=== PATIENT | female | born 1995 | race Caucasian/White ===

== ENCOUNTER 2016-06-16 13:58 | Emergency (ER) | payer BC ==
[2016-06-16 15:09] VITALS: BP 118/78
--- NOTE | 2016-06-16 15:49 | Emergency Department Report ---
HPI - General Chief Complaint: Fall Time Seen by Provider: 06/16/16 15:45 - HPI HPI: She is a 21-year-old female presents to ED complaining of right hand pain 3 days. Patient states Thursday evening she slipped down about the steps and fell and used her right hand to catch her fall. Patient states shortness after the incident she began feeling some sharp pain on her anterior right hand. Patient states pain is sharp in nature. Patient rates pain about 8 out of 10 intensity. Patient states pain is localized to that region. Patient states using hand makes pain worse. Signed patient denies fevers/chills/nausea/ vomiting/loss of sensation on hand/dislocation or bleeding. ED Past Medical Hx - Past Medical History Previous Medical History?: No - Surgical History Past Surgical History?: No - Social History Smoking Status: Current Some Day Smoker Substance Use Type: Alcohol, Marijuana - Medications Home Medications: Home Medications Medication Instructions Recorded Confirmed Last Taken Type Ibuprofen [Motrin] 800 mg PO Q8HR PRN #30 tablet 06/16/16 Unknown Rx ED Review of Systems ROS: Stated complaint: RT HAND INJURY Other details as noted in HPI Constitutional: denies: chills, fever Eyes: denies: eye pain, eye discharge, vision change ENT: denies: ear pain, throat pain Respiratory: denies: cough, shortness of breath, wheezing Cardiovascular: denies: chest pain, palpitations Endocrine: no symptoms reported Gastrointestinal: denies: abdominal pain, nausea, diarrhea Genitourinary: denies: urgency, dysuria, frequency, hematuria, discharge Musculoskeletal: denies: back pain, joint swelling, arthralgia Skin: denies: rash, lesions, pruritus Neurological: denies: headache, weakness, numbness, paresthesias, confusion Psychiatric: denies: anxiety, depression Hematological/Lymphatic: denies: easy bleeding, easy bruising Physical Exam - Physical Exam Vital Signs: Vital Signs 06/16/16 15:05 Temperature 98.2 F Pulse Rate 64 Respiratory 18 Rate Blood Pressure 118/78 O2 Sat by Pulse 100 Oximetry Physical Exam: GENERAL: Alert and oriented x3, no apparent distress, Normal Gait, atraumatic. HEAD: Head is normocephalic and a-traumatic. EYES: Extra ocular muscles are intact. Pupils are equal, round, and reactive to light and accommodation. NECK: Supple. Non edematous, No carotid bruits. No lymphadenopathy or thyromegaly. No C-spine tenderness LUNGS: Symetrical with respiration, No wheezing, no rales or crackles, CTAB. HEART: S1, S2 present, regular rate and rhythm without murmur, no rubs, no gallops. ABDOMEN: No organomegaly was noted,Positive bowel sounds, soft, and non- distended. . Nontender to palpation on all Quadrants, NO CVA tenderness. EXTREMITIES/MUSCULOSKELETAL: No cyanosis, clubbing, rash, lesions or edema. Full ROM bilaterally. UE Pulses 2+ bilaterally. UE 5+ strength bilaterally. Full range of motion of hand. Capillary refill 2 seconds bilaterally. Mild tenderness to palpation of 5th metacarpal bone region. NEUROLOGIC: No focal Deficit, Cranial nerves II through XII are grossly intact. No loss of sensation, PSYCHIATRIC: Mood is congruent with affect, denies suicidal or homicidal ideations. SKIN: Warm and dry, No lesions, No ulceration or induration present. ED Course Vital Signs 06/16/16 15:05 Temperature 98.2 F Pulse Rate 64 Respiratory 18 Rate Blood Pressure 118/78 O2 Sat by Pulse 100 Oximetry ED Medical Decision Making - Radiology Data Radiology results: report reviewed, image reviewed RIGHT HAND RADIOGRAPHS INDICATION: Right hand injury. Fell 3 days ago. COMPARISON: None similar at this institution. FINDINGS: AP, lateral and oblique right hand radiographs demonstrate normal bones, joints and soft tissues except for slightly prominent distal radioulnar joint gap on the frontal view, not excluded projectional. Directed clinical correlation recommended. CONCLUSION: Findings, as above. Please correlate. Thank you for the opportunity to participate in this patient's care. Transcribed By: RS Dictated By: ISABELLE VÁZQUEZ MD Electronically Authenticated By: ISABELLE VÁZQUEZ MD Signed Date/Time: 06/16/16 1631 - Medical Decision Making 21-year-old female presents with arthralgia secondary to fall ED course: She received Motrin in ED. hand x-ray ordered Right hand x-ray shows no acute fracture or dislocation. Discussed findings with patient. Chest the patient to apply heat 3 times a day. Discuss patient to continue to wear hand brace as needed. Discuss follow-up with primary care physician. Vital signs are normal patient is in no acute distress Patient understands instructions and will follow-up Critical care attestation.: If time is entered above; I have spent that time in minutes in the direct care of this critically ill patient, excluding procedure time. ED Disposition Clinical Impression: Hand pain, right Fall Qualifiers: Encounter type: initial encounter Qualified Code(s): W19.XXXA - Unspecified fall, initial encounter Disposition: DISCHARGED TO HOME OR SELFCARE Is pt being admited?: No Does the pt Need Aspirin: No Condition: Stable Instructions: Arthralgia (ED), Heat Pack Application (ED) Prescriptions: Ibuprofen [Motrin] 800 mg PO Q8HR PRN #30 tablet PRN Reason: Pain Referrals: PRIMARY CAREMD [Primary Care Provider] - 3-5 Days DENISE GUERRA MD [Referring] - 3-5 Days [facility] [Outside] - 3-5 Days [facility] [Outside] - 3-5 Days [facility] [Outside] - 3-5 Days Forms: Work/School Release Form(ED) Time of Disposition: 16:41
[2016-06-16] MEDS ORDERED: MOTRIN PO ONE (16:06)
--- NOTE | 2016-06-16 16:37 | XRay Report ---
RIGHT HAND RADIOGRAPHS INDICATION: Right hand injury. Fell 3 days ago. COMPARISON: None similar at this institution. FINDINGS: AP, lateral and oblique right hand radiographs demonstrate normal bones, joints and soft tissues except for slightly prominent distal radioulnar joint gap on the frontal view, not excluded projectional. Directed clinical correlation recommended. CONCLUSION: Findings, as above. Please correlate. Thank you for the opportunity to participate in this patient's care.
== END 2016-06-16 16:54 | disposition home or self-care (01) ==
LOC: ED 13:58
DX: M79.641 Pain in right hand (principal); W10.2XXA Fall (on)(from) incline, initial encounter; Y93.89 Activity, other specified; Y92.89 Other specified places as the place of occurrence of the external cause; Y99.8 Other external cause status; F17.200 Nicotine dependence, unspecified, uncomplicated; F12.10 Cannabis abuse, uncomplicated